=== PATIENT | male | born 1975 | race Caucasian/White ===

== ENCOUNTER 2018-01-18 19:08 | Emergency (ER) | payer OTHER ==
--- NOTE | 2018-01-18 19:12 | PDOC ---
Rapid Medical Evaluation Time Seen by Provider: 01/18/18 19:11 Medical Evaluation: Allergies Allergy/AdvReac Type Severity Reaction Status Date / Time No Known Allergies Allergy Verified 09/24/17 18:37 01/18/18 19:11 I have performed a brief in-person evaluation of this patient. The patient presents with a chief complaint of: low back pain x 1.5 wks to R leg , went to [facility], pcp Pertinent physical exam findings: ambulatory I have ordered the following: nothing The patient will proceed to the ED for further evaluation. Discharge Disposition - Diagnosis Low back pain - Referrals - Patient Instructions - Post Discharge Activity
[2018-01-18 19:15] VITALS: BP 152/98; PULSE 87; TEMP 98.2; BMI 30.9
[2018-01-18] MEDS ORDERED: IBUPROFEN 600 MG TABLET (FP) PO ONE ×2 (20:10→20:18)
[2018-01-18] MEDS ORDERED: CYCLOBENZAPRINE HCL 10 MG TABLET (FP) PO ONE (20:10)
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
--- NOTE | 2018-01-18 20:17 | PDOC ---
History of Present Illness - General Chief Complaint: Back Pain Stated Complaint: BACK/LEG PAIN Time Seen by Provider: 01/18/18 19:11 History Source: Patient Exam Limitations: No Limitations Past History - Past Medical History Allergies/Adverse Reactions: Allergies Allergy/AdvReac Type Severity Reaction Status Date / Time No Known Allergies Allergy Verified 09/24/17 18:37 Home Medications: Ambulatory Orders Aspirin [Aspirin EC] 81 mg PO DAILY 09/24/17 Losartan Potassium [Cozaar -] 50 mg PO DAILY 09/24/17 Metformin HCl [Glucophage] 1,000 mg PO BID 09/24/17 Cyclobenzaprine HCl 10 mg PO Q8H PRN #14 tablet 01/18/18 Anemia: No Asthma: No Cancer: No COPD: No Diabetes: Yes HTN: Yes - Surgical History Abdominal Surgery: No Appendectomy: No Cardiac Surgery: No Cholecystectomy: No Neurologic Surgery: No - Suicide/Smoking/Psychosocial Hx Smoking Status: No Smoking History: Never smoked Have you smoked in the past 12 months: No Number of Cigarettes Smoked Daily: 0 Information on smoking cessation initiated: No Hx Alcohol Use: No Drug/Substance Use Hx: No Substance Use Type: None Hx Substance Use Treatment: No Review of Systems - Review of Systems Able to Perform ROS?: Yes Is the patient limited Turkmen proficient: No Constitutional: Yes: Symptoms Reported *Physical Exam - Vital Signs Last Vital Signs Temp Pulse Resp BP Pulse Ox 98.2 F 87 19 152/98 100 01/18/18 19:14 01/18/18 19:14 01/18/18 19:14 01/18/18 19:14 01/18/18 19:14 *DC/Admit/Observation/Transfer Diagnosis at time of Disposition: Low back pain Qualifiers: Chronicity: unspecified Back pain laterality: unspecified Sciatica presence: with sciatica Sciatica laterality: sciatica of right side Qualified Code(s): M54.41 - Lumbago with sciatica, right side - Discharge Dispostion Disposition: HOME Condition at time of disposition: Stable Admit: No - Prescriptions Prescriptions: Cyclobenzaprine HCl 10 mg PO Q8H PRN #14 tablet PRN Reason: spasm - Referrals Referrals: Artemio Schroeder MD [Primary Care Provider] - - Patient Instructions Printed Discharge Instructions: DI for Back Strain or Sprain Additional Instructions: Rest, no heavy lifting or exercise until pain is resolved Hot soaks to neck and low back as often as possible/hot showers or Jacuzzis No massage or therapy until spasm is gone Continue ibuprofen 2-200 mg tablets every 6 hours for the next 3 days then as needed for pain and swelling Cyclobenzaprine 1-10mg every 8 hours as needed for spasm If not significant improvement within 24 hours with medication and rest regime, followup with private physician for change in medications and /or therapy. - Post Discharge Activity Forms/Work/School Notes: Back to Work
[2018-01-18] MEDS ORDERED: CYCLOBENZAPRINE HCL 10 MG TABLET (FP) ONE (20:18)
== END 2018-01-18 21:11 | disposition home or self-care (01) ==
LOC: JERFT 19:08
DX: M54.41 Lumbago with sciatica, right side (principal)
CPT/HCPCS: 99281-25